=== PATIENT | male | born 1970 | race Caucasian/White ===

== ENCOUNTER 2017-01-01 06:28 | Observation (INO) | payer BC ==
[2016-12-27 17:19] LABS: HEMATOCRIT 47.3 % (40.0-51.0); HEMOGLOBIN 15.8 g/dL (13.6-17.8)
[2016-12-27 17:28] LABS: BUN (BLOOD UREA NITROGEN) 13 MG/DL (6-23); CALCIUM, SERUM 9.5 MG/DL (8.5-10.4); CHLORIDE, SERUM 103 MMOL/L (96-112); CO2 (CARBON DIOXIDE) 25 MMOL/L (24-34); CREATININE 1.01 MG/DL (0.70-1.30); GFR AFRICAN AMERICAN 101 ML/MIN (>=60); GFR NON AFRICAN AMERICAN 88 ML/MIN (>=60); GLUCOSE, SERUM 204 MG/DL (60-99); POTASSIUM, SERUM 3.9 MMOL/L (3.5-5.3); SODIUM, SERUM 140 MMOL/L (135-148)
--- NOTE | ~2017-01-01 | OP ---
Record Of Operation [facility] [address] [place]. [address] NAME: NILDA COBOS : 66 STATUS : DIS Laura PAT#: [id number] AGE: 46 ADM/REG DATE : 01/01/17 MR#: [id number] REPORT SERV DATE: 01/02/17 DICTATED BY: SHAHZAD TEJADA DATE: 01/02/17 REPORT STATUS : Draft TRANSCRIBED BY: MODZay DATE: 01/02/17 DATE OF PROCEDURE: PREOPERATIVE DIAGNOSES: 1. Herniated nucleus pulposus, C4-C5 and C5-C6. 2. Left-sided radiculopathy with intractable pain. POSTOPERATIVE DIAGNOSES: 1. Herniated nucleus pulposus, C4-C5 and C5-C6. 2. Left-sided radiculopathy with intractable pain. PROCEDURE: 1. Microscopic navigation-assisted surgery. 2. Anterior cervical diskectomy, foraminotomy at C4-C5 and C5-C6. 3. Implantation of a Prestige LP artificial disk replacement, C4-C5 and C5-C6. SURGEON: Shahzad Tejada D.O. DIAL PRINTER: Gail Lloyd. ANESTHESIA: General. ESTIMATED BLOOD LOSS: 20 mL. INDICATIONS FOR SURGERY: A 46-year-old male with neck pain and shoulder and arm pain, has been treated for a year. The patient has had treatment by different spine surgeon in another community and has tried that time medication, therapy, etc. The patient has a recent MRI showing a disk herniation that is causing impingement on the exiting nerve root particularly at C5-6. There is some degree of impingement at C4-5 as well. The worst is the C5-6 level. Because of the above and failed to respond to conservative care, I explained to the patient his options including diskectomy and interbody fusion versus a diskectomy with re-implantation of the artificial disk replacement. The advantages and disadvantages of both surgical options were explained. The patient chose to proceed with disk arthroplasty. Prior to surgery, I have gone over the risks, benefits, alternatives, and expectations in detail. Consent form was signed. PROCEDURE: The patient was identified in the prep holding area, antibiotic prophylaxis given. Neurophysiology monitoring leads were inserted. The patient had general anesthetic including endotracheal intubation. He is in a supine position on fluoroscopic Reddick spine frame with a small bolster behind the shoulders. The scalp was painted with Betadine solution, Burdick 3-point fixation attached to the skull using 60 pounds of torque in a standard position. The Burdick was attached to the Jensen bed. The [employer] navigation registration frame was attached to the Leon. Because of the complexity of surgery and the need to identify correct level of surgery intraoperatively as well as desire to carry out the safest most precise dissection, I felt intraoperative navigation was mandatory. Record Of Operation [facility] [address] [place]. [address] NAME: NILDA COBOS : 66 STATUS : DIS Laura PAT#: [id number] AGE: 46 ADM/REG DATE : 01/01/17 MR#: [id number] REPORT SERV DATE: 01/02/17 DICTATED BY: SHAHZAD TEJADA DATE: 01/02/17 REPORT STATUS : Draft TRANSCRIBED BY: JAMES DATE: 01/02/17 Isolation drapes were placed. The neck was scrubbed with Hibiclens solution. DuraPrep was painted. Sterile drapes applied. Intraoperative CT scan with O-arm obtained, CT information used to register the navigational system. With navigational assistance, we identified the C4-5 and C5-6 level. At the mid body of C5, a transverse left-sided, 2.5 cm skin incision was carried out. The platysma was incised in line with the skin incision. The superficial layer of the deep cervical fascia was released along the anterior border of sternocleidomastoid, and blunt dissection was carried out to the retropharyngeal space. The longus coli muscles were subperiosteally elevated. Retractors were placed and the microscope was sterilely draped and used throughout the remainder of the procedure. Initially, the navigation was used to place a distractor pin in the mid body of C5 and C6. The disk was incised, diskectomy was carried out with curettes, rongeurs, and disk luis antonio. As we worked from anterior to posterior, we gently widened the interbody space. The uncinate processes were debrided to allow placement of the largest possible implant. As we worked posteriorly, the posterior inferior lip of the body of C5 was debride. This was to allow proper seating of the implant. The posterior longitudinal ligament was taken down. The left-sided disk herniation removed without difficulty. The endplate cartilage was curetted. The wounds were irrigated. The C-arm was then brought in the operative field, placed in the lateral plane, and we did a trial to determine the proper height and depth. We determined that a 6 x 18 mm was the appropriate size of disk replacement. I then with C-arm guidance, we placed a drill guide. We drilled the four holes. We did check the AP view with the drill guide to make sure we had proper rotational placement. We then used the rail guide to cut the rails and finally we placed the implant with the keel placed in the rail guide slot. After proper implanting the disk, the wounds were irrigated. We viewed the implant with AP and lateral x-rays, which showed excellent position of the implants. We then moved to C4-5, repeated the same identical steps with diskectomy, removal of the posterior longitudinal ligament, and trialing that determined the appropriate size implant. Ultimately, we did the drill guide, rail guide, and an implantation of the 6 x 18 disk from [employer] system. After final wound irrigation, the wound was carefully inspected. No bleeding was noted. The platysma was closed with a running 3-0 Vicryl suture. The subcutaneous tissue closed with 3-0 Vicryl suture, and subcuticular 4-0 PDS used for skin closure. Sterile dressings applied. The patient awakened, extubated, and taken to recovery room in satisfactory condition having tolerated the procedure well. /JAMES Shahzad Tejada D.O. Record Of Operation [address] [address] NAME: NILDA COBOS : 66 STATUS : DIS Laura PAT#: [id number] AGE: 46 ADM/REG DATE : 01/01/17 MR#: [id number] REPORT SERV DATE: 01/02/17 DICTATED BY: SHAHZAD TEJADA DATE: 01/02/17 REPORT STATUS : Draft TRANSCRIBED BY: MODL DATE: 01/02/17 / [id number] CC: Jacob Heath MD
[~2017-01-01 06:28] MED LIST: ACTOS30 PO; AVAPRO300 MG PO; GABAPENTIN; JANUMET1 TA1 PO; JARDI25B PO; LEXAPRO10 PO; NORV10 PO; TOPROL XL200 MG PO; TOUJEO SC
[2017-01-02] MEDS ORDERED: OXYCOD PO (08:59)
[2017-01-02] MEDS ORDERED: ANADS PO (09:00)
[2017-01-02] MEDS ORDERED: METHOC750B PO (09:01)
== END 2017-01-02 09:37 | disposition home or self-care (01) ==
LOC: SDC 06:28 → 3SO 18:07
PROVIDERS: Orthopaedic Surgery Orthopaedic Surgery of the Spine
PROC: 0PR Upper Bones, Replacement (ICD-10-PCS; principal; 2017-01-01 08:00)
DX: M50.121 Cervical disc disorder at C4-C5 level with radiculopathy (principal); M50.122 Cervical disc disorder at C5-C6 level with radiculopathy; I10 Essential (primary) hypertension; E11.9 Type 2 diabetes mellitus without complications; Z79.4 Long term (current) use of insulin; Z79.899 Other long term (current) drug therapy
CPT/HCPCS: 36415; 80048; 82962; 85014; 85018; 87641; 88304; 88311; 93005; 96374; 96375; 96376; A9270-GY; C1713; G0378; J0690; J2250; J2270; J2405; J2710; J3010